=== PATIENT | female | born 1985 | race Caucasian/White ===

== ENCOUNTER → 2024-02-06 08:39 | Outpatient (REF) | payer OTHER, SELFPAY | LOC: WDC 08:39 | PROVIDERS: ATTENDING PHYSICIAN Obstetrics & Gynecology | DX: R92.8 Other abnormal and inconclusive findings on diagnostic imaging of breast (principal) | CPT/HCPCS: 76642 ==

== ENCOUNTER → 2024-04-18 08:23 | Outpatient (REF) | payer OTHER, SELFPAY | LOC: PNTC 08:23 | PROVIDERS: ATTENDING PHYSICIAN Obstetrics & Gynecology | DX: O09.519 Supervision of elderly primigravida, unspecified trimester (principal); O34.11 Maternal care for benign tumor of corpus uteri, first trimester | CPT/HCPCS: 76801; 76813 ==

== ENCOUNTER → 2024-05-20 07:33 | Outpatient (REF) | payer OTHER, SELFPAY | LOC: PNTC 07:33 | PROVIDERS: ATTENDING PHYSICIAN Obstetrics & Gynecology | DX: O09.529 Supervision of elderly multigravida, unspecified trimester (principal); D25.9 Leiomyoma of uterus, unspecified; Z34.82 Encounter for supervision of other normal pregnancy, second trimester | CPT/HCPCS: 76805 ==

== ENCOUNTER 2024-10-22 19:38 | Inpatient (IN) | payer OTHER, SELFPAY ==
[2024-10-22 20:01] VITALS: BP 125/87; BMI 35.0
[2024-10-22 21:33] LABS: Hematocrit 34.5 % (37.0-47.0); Hemoglobin 11.5 g/dL (12.0-16.0); Mean Corp Hgb Conc. 33.3 g/dL (33.0-37.0); Mean Corpuscular Hgb 28.5 pg (27.0-31.0); Mean Corpuscular Volume 85.4 fL (81.0-99.0); Mean Platelet Volume 10.1 fL (7.4-10.4); Platelet Count 204 10^3/uL (130-400); Red Blood Cell Count 4.04 10^6/uL (4.20-5.40); Red Cell Dist. Width 17.8 % (11.5-14.5); White Blood Cell Count 9.6 10^3/uL (4.8-10.8)
[2024-10-22 22:01] LABS: % Basophils 0.5 % (0-2); % Eosinophils 2.3 % (0-6); % Immature Granulocytes 5.1 % (0-0.5); % Lymphocytes 18.2 % (20.5-51.1); % Monocytes 8.8 % (1.7-9.3); % Neutrophils 65.1 % (42.2-75.2); Absolute Basophils 0.1 10^3/uL (0-0.2); Absolute Eosinophils 0.2 10^3/uL (0-0.7); Absolute Immature Granulocytes 0.5 10^3/uL (0-0.05); Absolute Lymphocytes 1.8 10^3/uL (1.2-3.4); Absolute Monocytes 0.9 10^3/uL (0.1-0.6); Absolute Neutrophils 6.3 10^3/uL (1.4-6.5); Nucleated Red Blood Cells % 0 %
[2024-10-22] MEDS: CYTOTEC 25 MICROGRAM VAG (22:13)
[2024-10-23] MEDS: CYTOTEC 50 MICROGRAM PO (02:13)
[2024-10-23] MEDS: LR 1000 IV ×2 (06:24→22:46)
[2024-10-23] MEDS: BRETHINE 250 MCG SC (08:27)
[2024-10-23] MEDS: PITOCIN 30 UNITS/NSS 500 ML IV (14:36)
[2024-10-24] MEDS: LR 1000 IV (03:24)
[2024-10-24] MEDS: STADOL 1 MG IV (04:21)
[2024-10-24] MEDS: TYLENOL 1000 MG PO (09:41)
[2024-10-24] MEDS: BICITRA 30 ML PO (09:41)
[2024-10-24] MEDS: ANCEF 10 IV (09:42)
[2024-10-24] MEDS: TORADOL 15 MG IV ×2 (16:15→21:59)
[2024-10-24] MEDS: ANUSOL HC 25 MG RECTAL (20:06)
[2024-10-25] MEDS: TORADOL 15 MG IV ×2 (03:49→10:44)
[2024-10-25 04:38] LABS: Hematocrit 30.4 % (37.0-47.0); Hemoglobin 10.3 g/dL (12.0-16.0); Mean Corp Hgb Conc. 33.9 g/dL (33.0-37.0); Mean Corpuscular Hgb 28.7 pg (27.0-31.0); Mean Corpuscular Volume 84.7 fL (81.0-99.0); Mean Platelet Volume 10.5 fL (7.4-10.4); Platelet Count 194 10^3/uL (130-400); Red Blood Cell Count 3.59 10^6/uL (4.20-5.40); Red Cell Dist. Width 17.9 % (11.5-14.5); White Blood Cell Count 14.9 10^3/uL (4.8-10.8)
[2024-10-25] MEDS: PRENATAL PLUS 1 TABLET PO (08:25)
[2024-10-25] MEDS: SENOKOT-S 1 TABLET PO (08:25)
[2024-10-25] MEDS: MYLICON 80 MG PO (08:27)
[2024-10-25] MEDS: FEOSOL 325 MG PO (08:34)
--- NOTE | 2024-10-25 11:04 | W.PN.ANS.POP ---
Anesthesia Post Operative
- Anesthesia Post Op Note
Vital Signs Stable-See Nursing Note: Yes
Airway Patent: Yes
Adequate Pain Control: Yes
Change in Mental Status: No
Current Postoperative Nausea & Vomiting: No
Anesthesia Complications: No
General Anesthetic Recall: No
Unplanned Admission: No
Post Op Hydration Adequate: Yes
[2024-10-25 15:52] LABS: Syphilis/T. pallidum Ab Reflex Negative (Negative)
[2024-10-25] MEDS: ANUSOL HC 25 MG RECTAL (20:21)
[2024-10-25] MEDS: MOTRIN 600 MG PO (20:21)
[2024-10-25] MEDS: TYLENOL 650 MG PO (20:22)
[2024-10-26] MEDS: TYLENOL 650 MG PO ×3 (02:26→18:06)
[2024-10-26] MEDS: MYLICON 80 MG PO ×3 (02:27→20:27)
[2024-10-26] MEDS: MOTRIN 600 MG PO ×3 (02:27→20:27)
[2024-10-26] MEDS: PRENATAL PLUS 1 TABLET PO (08:35)
[2024-10-26] MEDS: SENOKOT-S 1 TABLET PO (08:35)
[2024-10-26] MEDS: ANUSOL HC 25 MG RECTAL ×2 (08:35→20:27)
[2024-10-26] MEDS: FEOSOL 325 MG PO (08:35)
[2024-10-27] MEDS: MYLICON 80 MG PO ×2 (05:23→08:07)
[2024-10-27] MEDS: SENOKOT-S 1 TABLET PO (08:07)
[2024-10-27] MEDS: PRENATAL PLUS 1 TABLET PO (08:07)
[2024-10-27] MEDS: MOTRIN 600 MG PO (08:07)
[2024-10-27] MEDS: FEOSOL 325 MG PO (08:07)
[2024-10-27] MEDS: ANUSOL HC 25 MG RECTAL ×2 (08:11)
--- NOTE | 2024-10-27 09:40 | W.DS.TRANS ---
DC Summary - Trading Specialist
-
Discharge Instructions:
Discharge Diagnosis/Procedures delivered at 39w4d;macrosomia;
cervical ripening, induction of labor;failed
induction; Primary low transverse
section, mild anemia
Diet Regular
Activity No strenuous activity
Driving Restrictions No driving for 2 weeks
Bathing Restrictions OK to Shower
Instructions:
Stand-Alone Forms: LDRP Delivery
Changes to Home Medications: No
Discharge Medications:
DC Medications w/original date entered in [employer]
ferrous sulfate 27 mg iron tablet 27 mg PO DAILY Supplement 10/22/24
prenat.vits,pollo,hdj-tsar-dinmw 1 tab PO DAILY Supplement 10/22/24
acetaminophen 325 mg tablet 650 mg (2 x 325 mg) PO Q4HPRN PRN mild pain #0 tabs 10/26/24
hydrocortisone acetate 25 mg rectal suppository 25 mg NV BID #0 ea 10/26/24
ibuprofen 600 mg tablet 600 mg PO Q6HPRN PRN cramps #0 tabs 10/26/24
Home Medication Changes
Pending Results: Yes
Additional Pending Results:
placental pathology
Total time spent discharging patient (in min): 30
== END 2024-10-27 12:55 | disposition home or self-care (01) | DRG 788 ==
LOC: LDRP 19:38
PROVIDERS: Obstetrics & Gynecology; ADMITTING PHYSICIAN Student in an Organized Health Care Education/Training Program
PROC: 10D00Z1 Extraction of Products of Conception, Low, Open Approach (ICD-10-PCS; 2024-10-24)
DX: O36.63X0 Maternal care for excessive fetal growth, third trimester, not applicable or unspecified (principal); O34.13 Maternal care for benign tumor of corpus uteri, third trimester; D25.9 Leiomyoma of uterus, unspecified; Z3A.39 39 weeks gestation of pregnancy; Z37.0 Single live birth; O61.0 Failed medical induction of labor
CPT/HCPCS: 88307; 85025; 85027; 86780; 86850; 86900; 86901